=== PATIENT | male | born 1975 ===

== ENCOUNTER 2019-04-16 08:58 | Emergency (ER) | payer BC ==
[2019-04-16 10:35] LABS: ABS Basophils 0.1 10^3/ul (0-0.2); ABS Lymphocytes 1.8 10^3/ul (1.0-4.8); ABS Monocytes 0.4 10^3/ul (0-0.8); ABS Neutrophils 4.3 10^3/ul (1.5-7.7); Eosinophil % 0.3 %; Hematocrit 44 % (42-52); Lymphocyte % 27.4 %; Mean Corpuscular HGB Conc 34 g/dL (31-36); Mean Corpuscular Hemoglobin 30 pg (27-31); Mean Corpuscular Volume 88 fL (80-94); Mean Platelet Volume 8.1 fL (7.4-10.4); Nucleated Red Blood Cells % 0.1; Platelet Count 276 10^3/uL (150-450); Red Cell Distribution Width 14 % (10-15); White Blood Count 6.5 10^3/uL (3.5-10.8)
[2019-04-16 10:39] LABS: INR 1.1 (0.82-1.09)
[2019-04-16 10:48] LABS: Albumin 4.9 g/dL (3.2-5.2); BUN/Creatinine Ratio 8.7 (8-20); Calcium 10.2 mg/dL (8.6-10.3); EGFR African American 74.9 (>60); EGFR Non-African American 61.9 (>60); Potassium 3.7 mmol/L (3.5-5.0); Total Bilirubin 1.6 mg/dL (0.2-1.0)
[2019-04-16] MEDS ORDERED: Nitroglycerin TAB 0.4 MG* 0.4 MG TAB SL ONE (11:25)
[2019-04-16] MEDS ORDERED: Aspirin 81 mg CHEW TAB* 81 MG TAB.CHEW PO ONE (11:25)
--- NOTE | 2019-04-16 11:32 | ED ---
HPI Chest Pain - HPI Summary HPI Summary: Patient is a 44 y/o M presenting to the ED for a chief complaint of diffuse chest pain that began on the night of 04/15/19. Patient states that the chest pain has been constant since initial onset. He rates the chest pain as 6/10 in severity and describes the chest pain as a tightness and pressure sensation. At 03:00 on 04/16/19, patient reports the chest pain began to radiate to the left neck and left shoulder. Patient notes nausea, vomiting, shortness of breath, and dizziness. The chest pain does not worsen on palpation of the chest. Any aggravating or alleviating factors are denied. He admits recent stress from his parent's in the last year. PMHx is significant for hypercholesterolemia for which he was placed on Crestor one month ago. FMHx is significant for cardiac disease, myocardial infarction, and hypercholesterolemia. Patient denies tobacco or drug use, but admits alcohol use socially. - History of Current Complaint Chief Complaint: EDChestWallPain Time Seen by Provider: 04/16/19 11:18 Hx Obtained From: Patient Onset/Duration: Started Hours Ago, Atraumatic, Still Present Timing: Constant Initial Severity: Moderate Current Severity: Moderate Pain Intensity: 6 Pain Scale Used: 0-10 Numeric Chest Pain Location: Diffuse Chest Pain Radiates: Yes Chest Pain Radiates To:: Shoulder - Left, Neck - Left Character: Pressure/Squeezing, Tightness Aggravating Factor(s): Nothing Alleviating Factor(s): Nothing Associated Signs and Symptoms: Positive: Chest Pain, Dizziness, Shortness of Breath, Nausea, Vomiting - Allergy/Home Medications Allergies/Adverse Reactions: Allergies Allergy/AdvReac Type Severity Reaction Status Date / Time No Known Allergies Allergy Verified 04/16/19 09:05 Home Medications: Home Medications Rosuvastatin Calcium 10 mg PO QPM 04/16/19 [History Confirmed 04/16/19] sulfADIAZINE (NF) 500 mg PO DAILY 04/16/19 [History Confirmed 04/16/19] PMH/Surg Hx/FS Hx/Imm Hx Previously Healthy: Yes Endocrine/Hematology History: Denies: Hx Diabetes Cardiovascular History: Reports: Hx Hypercholesterolemia Denies: Hx Hypertension Sensory History: Denies: Hx Legally Blind, Hx Deafness Opthamlomology History: Denies: Hx Legally Blind EENT History: Denies: Hx Deafness - Surgical History Surgical History: Yes Infectious Disease History: No Infectious Disease History: Denies: Traveled Outside the [place] in Last 30 Days - Family History Known Family History: Positive: Cardiac Disease, Other - HLD, PA - Social History Occupation: Employed Full-time Lives: With Family Alcohol Use: Rare Hx Substance Use: No Substance Use Type: Reports: None Hx Tobacco Use: No Smoking Status (MU): Never Smoked Tobacco Review of Systems Positive: Chest Pain - Diffuse Positive: Shortness Of Breath Positive: Vomiting, Nausea Positive: Myalgia - Left neck and left shoulder that radiates from the chest Neurological: Other - Positive dizziness All Other Systems Reviewed And Are Negative: Yes Physical Exam - Summary Physical Exam Summary: VITAL SIGNS: Reviewed. GENERAL: Patient is a well-developed and nourished MALE who is lying comfortable in the stretcher. Patient is not in any acute respiratory distress. HEAD AND FACE: No signs of trauma. No ecchymosis, hematomas or skull depressions. No sinus tenderness.. EYES: PERRLA, EOMI x 2, No injected conjunctiva, no nystagmus. EARS: Hearing grossly intact. Ear canals and tympanic membranes are within normal limits. MOUTH: Oropharynx within normal limits. NECK: Supple, trachea is midline, no adenopathy, no JVD, no carotid bruit, no c- spine tenderness, neck with full ROM. CHEST: Symmetric, no tenderness at palpation. LUNGS: Clear to auscultation bilaterally. No wheezing or crackles. CVS: Regular rate and rhythm, S1 and S2 present, no murmurs or gallops appreciated. ABDOMEN: Soft, non-tender. No signs of distention. No rebound, no guarding, and no masses palpated. Bowel sounds are normal. EXTREMITIES: FROM in all major joints, no edema, no cyanosis or clubbing. NEURO: Alert and oriented x 3. No acute neurological deficits. Speech is normal and follows commands. SKIN: Dry and warm. Triage Information Reviewed: Yes Vital Signs On Initial Exam: Initial Vitals Temp Pulse Resp BP Pulse Ox 98.3 F 76 16 143/91 100 04/16/19 08:59 04/16/19 08:59 04/16/19 08:59 04/16/19 08:59 04/16/19 08:59 Vital Signs Reviewed: Yes Procedures - Sedation Patient Received Moderate/Deep Sedation with Procedure: No Diagnostics - Vital Signs Vital Signs Temp Pulse Resp BP Pulse Ox 04/16/19 08:59 98.3 F 76 16 143/91 100 - Laboratory Lab Results: Lab Results 04/16/19 04/16/19 04/16/19 Range/Units 10:18 10:18 10:18 WBC 6.5 (3.5-10.8) 10^3/uL RBC 5.00 (4.18-5.48) 10^6 /uL Hgb 15.0 (14.0-18.0) g/dL Hct 44 (42-52) % MCV 88 (80-94) fL MCH 30 (27-31) pg MCHC 34 (31-36) g/dL RDW 14 (10-15) % Plt Count 276 (150-450) 10^3/uL MPV 8.1 (7.4-10.4) fL Neut % (Auto) 65.6 % Lymph % (Auto) 27.4 % Holt % (Auto) 5.5 % Eos % (Auto) 0.3 % Baso % (Auto) 1.2 % Absolute Neuts (auto) 4.3 (1.5-7.7) 10^3/ul Absolute Lymphs (auto) 1.8 (1.0-4.8) 10^3/ul Absolute Monos (auto) 0.4 (0-0.8) 10^3/ul Absolute Eos (auto) 0.0 (0-0.6) 10^3/ul Absolute Basos (auto) 0.1 (0-0.2) 10^3/ul Absolute Nucleated RBC 0.0 10^3/ul Nucleated RBC % 0.1 INR (Anticoag Therapy) 1.10 H (0.82-1.09) Sodium 139 (135-145) mmol/L Potassium 3.7 (3.5-5.0) mmol/L Chloride 102 (101-111) mmol/L Carbon Dioxide 23 (22-32) mmol/L Anion Gap 14 H (2-11) mmol/L BUN 11 (6-24) mg/dL Creatinine 1.26 H (0.67-1.17) mg/dL Est GFR ( Amer) 74.9 (>60) Est GFR (Non-Af Amer) 61.9 (>60) BUN/Creatinine Ratio 8.7 (8-20) Glucose 89 (70-100) mg/dL Calcium 10.2 (8.6-10.3) mg/dL Total Bilirubin 1.60 H (0.2-1.0) mg/dL AST 24 (13-39) U/L ALT 40 (7-52) U/L Alkaline Phosphatase 68 (34-104) U/L Troponin I 0.00 (<0.03) ng/mL Total Protein Pending Albumin 4.9 (3.2-5.2) g/dL Globulin Pending Albumin/Globulin Ratio Pending Result Diagrams: 04/16/19 10:18 04/16/19 10:18 Lab Statement: Any lab studies that have been ordered have been reviewed, and results considered in the medical decision making process. - Radiology Chest X-ray Radiology Interpretation Completed By: Radiologist Summary of Radiographic Findings: Chest X-ray IMPRESSION: NO ACTIVE CARDIOPULMONARY DISEASE. Reviewed by Dr. Cobian. - EKG 09:02 Cardiac Rate: NL - 72 BPM EKG Rhythm: Sinus Rhythm ST Segment: Normal Ectopy: None Summary of EKG Findings: EKG at 09:02 shows normal sinus rhythm with 72 BPM, no ST elevations, no STEMI. Reviewed and interpreted by Dr. Cobian. Chest Pain Course/Dx - Course Assessment/Plan: Patient is a 44 y/o M presenting to the ED for a chief complaint of diffuse chest pain that began on the night of 04/15/19. Patient states that the chest pain has been constant since initial onset. He rates the chest pain as 6/10 in severity and describes the chest pain as a tightness and pressure sensation. At 03:00 on 04/16/19, patient reports the chest pain began to radiate to the left neck and left shoulder. Patient notes nausea, vomiting, shortness of breath, and dizziness. The chest pain does not worsen on palpation of the chest. Any aggravating or alleviating factors are denied. He admits recent stress from his parent's in the last year. PMHx is significant for hypercholesterolemia for which he was placed on Crestor one month ago. FMHx is significant for cardiac disease, myocardial infarction, and hypercholesterolemia. Patient denies tobacco or drug use, but admits alcohol use socially. Blood work is without any significant abnormality except for creatinine 1.26, anion gap 14, total bilirubin 1.6. 2 troponins 4 hours apart as 0.00. In the ED course, the patient was given nitroglycerin and aspirin with no significant improvement. Chest x-ray impression: No acute pathology. Heart to score is equal to 2. Therefore, since the patient is feeling better and has no complaints, she will be discharged home to follow-up with her primary care physician. Patient is hemodynamically stable, and alert and oriented 3. - Chest Pain Differential Diagnosis/HQI/PQRI: Acute PA, ACS, Angina, CHF, Chest Wall, GI Disease, Lower Respiratory Infection - Diagnoses Provider Diagnoses: Chest pain Discharge ED - Sign-Out/Discharge Documenting (check all that apply): Patient Departure - Discharge - Discharge Plan Condition: Stable Disposition: HOME Patient Education Materials: Chest Pain (ED) Referrals: Vidal Stephenson DO [Primary Care Provider] - Additional Instructions: FOLLOW UP WITH YOUR PRIMARY CARE PROVIDER WITHIN 3 DAYS. RETURN TO THE EMERGENCY DEPARTMENT FOR ANY WORSENING OR NEW SYMPTOMS. - Billing Disposition and Condition Condition: STABLE Disposition: Home - Attestation Statements Document Initiated by Nehaibe: Yes Documenting Scribe: Negra Chadwick Provider For Whom Skylar is Documenting (Include Credential): Abe Cobian MD Scribe Attestation: INegra scribed for Abe Cobian MD on 04/16/19 at 1838. Scribe Documentation Reviewed: Yes Provider Attestation: The documentation as recorded by the Negra frias accurately reflects the service I personally performed and the decisions made by me, Abe Cobian MD Status of Scribe Document: Viewed
[2019-04-16 11:47] LABS: Albumin/Globulin Ratio 1.7 (1-3); Globulin 2.9 g/dL (2-4); Total Protein 7.8 g/dL (6.4-8.9)
[2019-04-16 15:16] VITALS: BP 122/72
== END 2019-04-16 15:16 | disposition home or self-care (01) ==
LOC: ED 08:58
DX: R07.9 Chest pain, unspecified (principal); E78.00 Pure hypercholesterolemia, unspecified; Z79.899 Other long term (current) drug therapy
CPT/HCPCS: 36415; 71045; 80053; 84484; 85025; 85610; 93005; 99284; A9270-GY